=== PATIENT | female | born 1960 | race Hispanic/Latino ===

== ENCOUNTER 2020-06-11 14:10 | Outpatient (CLI) | payer OTHER | END 2020-06-11 14:11 | disposition home or self-care (01) | LOC: LAB 14:10 | DX: T75.89XA Other specified effects of external causes, initial encounter (principal); W46.1XXA Contact with contaminated hypodermic needle, initial encounter; Y93.89 Activity, other specified; Y92.89 Other specified places as the place of occurrence of the external cause; Y99.8 Other external cause status | CPT/HCPCS: 36415; 86689; 86706; 87806 ==